=== PATIENT | male | born 1940 | race Caucasian/White ===

== ENCOUNTER 2018-01-28 09:05 | Emergency (ER) | payer OTHER ==
[~2018-01-28] VITALS: Ht 177.8 cm; Wt 81.6 kg
[2018-01-28 09:10] VITALS: BP 157/87
== END 2018-01-28 09:21 | disposition home or self-care (01) ==
LOC: ER 09:09
DX: R07.89 Other chest pain (principal); F41.9 Anxiety disorder, unspecified; I10 Essential (primary) hypertension
CPT/HCPCS: 99283; A4606; Z7610

== ENCOUNTER 2021-09-10 18:12 | Emergency (ER) | payer MEDICARE, BC ==
[~2021-09-10] VITALS: Ht 180.3 cm; Wt 88.5 kg
--- NOTE | 2021-09-10 18:45 | NUR ---
TO ER BED 9. [id number] FRM RETIREMENT C/O HEADACHE AND AGITATION SINCE THIS MORNING. PT IS A&OX3. VITALS WITHIN NORMAL LIMITS. BREATHING IS EVEN AND UNLABOERD. AWAITING MD PURI.
[2021-09-10] MEDS ORDERED: AMLO-212 PO (19:02)
[2021-09-10] MEDS ORDERED: PANT40TA2 PO (19:02)
[2021-09-10] MEDS ORDERED: LORA-259 PO (19:02)
[2021-09-10] MEDS ORDERED: QUET50TA PO (19:02)
[2021-09-10] MEDS ORDERED: VIT1CAPS9 PO (19:02)
[2021-09-10] MEDS ORDERED: CYAN500T9 PO (19:02)
[2021-09-10] MEDS ORDERED: FURO-145 PO (19:02)
[2021-09-10] MEDS ORDERED: GABA-532 PO ×2 (19:02)
[2021-09-10] MEDS ORDERED: OXYC-133 PO (19:02)
[2021-09-10] MEDS ORDERED: METO25TA3 PO (19:02)
[2021-09-10] MEDS ORDERED: ASPI-1169 PO (19:02)
[2021-09-10] MEDS ORDERED: APIX5TAB PO (19:02)
[2021-09-10] MEDS ORDERED: ROSU20TA2 PO (19:02)
[2021-09-10] MEDS ORDERED: POTA10TA10 PO (19:02)
[2021-09-10] MEDS ORDERED: DULO30CA2 PO (19:02)
[2021-09-10] MEDS ORDERED: DIVA125C5 PO (19:02)
[2021-09-10] MEDS ORDERED: CHOL100043 PO (19:02)
--- NOTE | 2021-09-10 20:28 | NUR ---
CALLED [facility] FOR TRANSPORTATION BACK HOME. ETA 45 MINUTES!
--- NOTE | 2021-09-10 21:04 | NUR ---
[facility] AT BEDSIDE FOR PICKUP. PATIENT DISCHARGED IN STABLE CONDITION. DISCHARGE PAPERS GIVEN TO PATIENT PATIENT LEAVING IN STABLE CONDITION.
--- NOTE | 2021-09-10 21:06 | NUR ---
[facility] AT BED SIDE TO RN TELEPHONIC THE PT
[2021-09-10 21:07] VITALS: BP 126/60
== END 2021-09-10 21:11 | disposition home or self-care (01) ==
LOC: ER 18:17
DX: R51.9 Headache, unspecified (principal); F03.90 Unspecified dementia, unspecified severity, without behavioral disturbance, psychotic disturbance, mood disturbance, and anxiety; I10 Essential (primary) hypertension; Z88.8 Allergy status to other drugs, medicaments and biological substances; Z79.899 Other long term (current) drug therapy; Z79.82 Long term (current) use of aspirin
CPT/HCPCS: 70450-TC